=== PATIENT | male | born 1955 | race Caucasian/White ===

== ENCOUNTER 2022-04-27 18:05 | Emergency (ER) | payer MEDICARE, OTHER ==
[~2022-04-27] VITALS: Ht 170.2 cm; Wt 136.3 kg
[2022-04-27 18:36] VITALS: BP 149/96
[2022-04-28 00:32] LABS: Basophils # (auto) 0 10 ^3/uL (0-0.2); Eosinophils # (auto) 0.2 10 ^3/uL (0-0.8); Hematocrit 39.5 % (41.0-53.0); Lymphocytes # (auto) 1.2 10 ^3/uL (0.4-5.4); Monocytes # (auto) 0.7 10 ^3/uL (0-1.3); Neutrophils # (auto) 2.8 10 ^3/uL (1.6-8.6); White Blood Cell 4.9 10^3/uL (4.4-10.8)
[2022-04-28 00:33] LABS: Basophils % (auto) 0.4 % (0.0-2.0); Eosinophils % (auto) 3.4 % (0.0-7.0); Hemoglobin 13.5 g/dL (13.5-17.5); Lymphocytes % (auto) 24.2 % (10.0-50.0); Mean Corpuscular Hemoglobin 35.8 pg (28.0-32.0); Mean Corpuscular Hgb Conc. 34.3 g/dL (32.0-36.0); Mean Corpuscular Volume 104.6 fL (80.0-100.0); Nucleated Red Blood Cells % 0.1 %; Red Blood Cells 3.78 10^6/uL (4.5-5.90); Red Cell Distribution Width 14.7 % (11.8-14.3)
[2022-04-28 00:50] LABS: Albumin 2.2 g/dL (3.4-5.0); BUN/Creatinine Ratio 17.6; Calcium 8.1 mg/dL (8.5-10.1); Magnesium 2.4 mg/dL (1.6-2.6); Potassium 4.5 mmol/L (3.5-5.1)
[2022-04-28 00:53] LABS: Bilirubin, Total 3.4 mg/dL (0.2-1.0); Total Protein 7.4 g/dL (6.4-8.2)
== END 2022-04-28 05:21 | disposition home or self-care (01) ==
LOC: ER 18:05
DX: K72.90 Hepatic failure, unspecified without coma (principal); R60.1 Generalized edema; E88.09 Other disorders of plasma-protein metabolism, not elsewhere classified
CPT/HCPCS: 36415; 80053; 83735; 83880; 84484; 85025

== ENCOUNTER 2022-04-29 21:06 | Inpatient (IN) | payer MEDICARE ==
[~2022-04-29] VITALS: Ht 170.2 cm; Wt 122.1 kg
[2022-04-29] MEDS ORDERED: FUROSEMIDE 100 MG/10ML VIAL IV ONE (22:15)
[2022-04-29 23:04] LABS: Basophils # (auto) 0 10 ^3/uL (0-0.2); Eosinophils # (auto) 0.1 10 ^3/uL (0-0.8); Hemoglobin 13.7 g/dL (13.5-17.5); Monocytes # (auto) 0.9 10 ^3/uL (0-1.3); Nucleated Red Blood Cells % 0.1 %; White Blood Cell 5.3 10^3/uL (4.4-10.8)
[2022-04-29 23:05] LABS: Basophils % (auto) 0.4 % (0.0-2.0); Eosinophils % (auto) 2.8 % (0.0-7.0); Hematocrit 40.4 % (41.0-53.0); Lymphocytes % (auto) 19.1 % (10.0-50.0); Mean Corpuscular Hemoglobin 35.5 pg (28.0-32.0); Mean Corpuscular Volume 104.5 fL (80.0-100.0); Monocytes % (auto) 17.7 % (0.0-12.0); Neutrophils # (auto) 3.2 10 ^3/uL (1.6-8.6); Red Blood Cells 3.86 10^6/uL (4.5-5.90)
[2022-04-29 23:21] LABS: INR 1.34 (0.9-1.15)
[2022-04-29 23:26] LABS: Albumin 2.2 g/dL (3.4-5.0); BUN/Creatinine Ratio 12.5; Calcium 7.9 mg/dL (8.5-10.1); Potassium 4.2 mmol/L (3.5-5.1)
[2022-04-29 23:29] LABS: Total Protein 7.6 g/dL (6.4-8.2)
[2022-04-30] MEDS ORDERED: ALUM & MAG HYDROX-SIMETH LIQ(MAALOX) 30 ML PO PRN
[2022-04-30] MEDS ORDERED: LORazepam 0.5 MG TAB PO PRN
[2022-04-30] MEDS ORDERED: MORPHINE SULFATE INJ 2 MG/ml SYRG IV PRN
[2022-04-30] MEDS ORDERED: HYDROcodone-ACET 5/325MG TAB PO PRN
[2022-04-30] MEDS ORDERED: ONDANSETRON HCL 4 MG/2 ML VIAL IV PRN
[2022-04-30] MEDS ORDERED: ACETAMINOPHEN 325 MG TAB PO PRN
[2022-04-30] MEDS ORDERED: AZITHROMYCIN 500MG/ 250ML 250 ML IV ONE (00:45)
[2022-04-30] MEDS ORDERED: cefTRIAXone 1GM/50ML D5W 50 ML IV ONE (00:45)
[2022-04-30 02:13] LABS: Urine Bacteria FEW /hpf (None Seen); Urine Blood TRACE /uL (Negative); Urine Mucus FEW (None Seen); Urine Specific Gravity 1.017 (1.001-1.035); Urine WBC 3 /hpf (0 - 3)
[2022-04-30 02:14] LABS: Alcohol, Urine < 3.0 mg/dL (0-10); Amphetamine Screen, Urine POSITIVE (NEGATIVE); Barbiturate Scree,Urine NEGATIVE (NEGATIVE); Benzodiazephine Screen, Urine NEGATIVE (NEGATIVE); Cannabinoid Screen, Urine NEGATIVE (NEGATIVE); Cocaine Screen, Urine NEGATIVE (NEGATIVE)
[2022-04-30 02:21] LABS: Opiate Scree,Urine NEGATIVE (NEGATIVE); Phencyclidine Screen, Urine NEGATIVE (NEGATIVE)
[2022-04-30] MEDS ORDERED: IOHEXOL 350 MG/ML 100ML IJ ONE (02:42)
[2022-04-30 02:54] LABS: INR 1.37 (0.9-1.15); Partial Thromboplastin Time 33.3 sec (24.6-33.4)
[2022-04-30] MEDS ORDERED: ALBUMIN 25% 100 ML IV ONE (09:45)
[2022-04-30] MEDS: THIAMINE HCL 100 MG TAB PO SCH (10:00)
[2022-04-30] MEDS: FOLIC ACID 1 MG TAB PO SCH (10:00)
[2022-04-30] MEDS: MULTIPLE VITAMINS W/ MINERALS TAB PO SCH (10:00)
[2022-04-30] MEDS: cefTRIAXone 1GM/50ML D5W 50 ML IV SCH (10:38)
[2022-04-30] MEDS: SODIUM CHLOR 0.9% PF (SALINE LOCK) 10ML VIAL/SYR IV SCH ×3 (10:58→22:07)
[2022-04-30] MEDS: FUROSEMIDE 40 MG/4 ML VIAL IV SCH ×2 (10:58→18:00)
[2022-04-30 12:13] VITALS: BP 104/86
[2022-04-30 13:00] VITALS: BP 114/65
[2022-04-30] MEDS ORDERED: FURO1TAB31 PO (14:17)
[2022-04-30 17:00] VITALS: BP 113/62
[2022-04-30 22:00] VITALS: BP 109/60
[2022-05-01 05:00] VITALS: BP 98/63
[2022-05-01 06:12] LABS: Monocytes # (auto) 0.8 10 ^3/uL (0-1.3); Red Cell Distribution Width 14.8 % (11.8-14.3)
[2022-05-01] MEDS: SODIUM CHLOR 0.9% PF (SALINE LOCK) 10ML VIAL/SYR IV SCH ×3 (06:13→22:57)
[2022-05-01 06:15] LABS: Basophils # (auto) 0.1 10 ^3/uL (0-0.2); Eosinophils # (auto) 0.3 10 ^3/uL (0-0.8); Hematocrit 37.9 % (41.0-53.0); Hemoglobin 13.3 g/dL (13.5-17.5); Lymphocytes # (auto) 1.1 10 ^3/uL (0.4-5.4); Lymphocytes % (auto) 21.4 % (10.0-50.0); Mean Corpuscular Hemoglobin 36.5 pg (28.0-32.0); Mean Corpuscular Volume 104.1 fL (80.0-100.0); Monocytes % (auto) 15.1 % (0.0-12.0); Neutrophils # (auto) 2.9 10 ^3/uL (1.6-8.6); Neutrophils % (auto) 57.5 % (37.0-80.0); Nucleated Red Blood Cells % 0.3 %; Red Blood Cells 3.65 10^6/uL (4.5-5.90)
[2022-05-01 06:20] LABS: Potassium 4.2 mmol/L (3.5-5.1)
[2022-05-01 06:29] LABS: BUN/Creatinine Ratio 17.6; Bilirubin, Total 2.8 mg/dL (0.2-1.0); Calcium 7.8 mg/dL (8.5-10.1); Magnesium 2.5 mg/dL (1.6-2.6); Total Protein 6.4 g/dL (6.4-8.2)
[2022-05-01] MEDS: FUROSEMIDE 40 MG/4 ML VIAL IV SCH ×2 (06:56→18:00)
[2022-05-01 08:25] VITALS: BP 95/67
[2022-05-01] MEDS: MULTIPLE VITAMINS W/ MINERALS TAB PO SCH (09:33)
[2022-05-01] MEDS: THIAMINE HCL 100 MG TAB PO SCH (09:33)
[2022-05-01] MEDS: cefTRIAXone 1GM/50ML D5W 50 ML IV SCH (09:33)
[2022-05-01] MEDS: FOLIC ACID 1 MG TAB PO SCH (09:33)
[2022-05-01] MEDS: AZITHROMYCIN 500MG/ 250ML 250 ML IV SCH (10:49)
[2022-05-01 12:20] VITALS: BP 102/60
[2022-05-01 16:20] VITALS: BP 117/77
[2022-05-02 05:00] VITALS: BP 96/74
[2022-05-02] MEDS: FUROSEMIDE 40 MG/4 ML VIAL IV SCH ×2 (05:25→17:38)
[2022-05-02] MEDS: SODIUM CHLOR 0.9% PF (SALINE LOCK) 10ML VIAL/SYR IV SCH ×3 (05:25→22:00)
[2022-05-02 08:20] VITALS: BP 139/89
[2022-05-02] MEDS: FOLIC ACID 1 MG TAB PO SCH (08:52)
[2022-05-02] MEDS: cefTRIAXone 1GM/50ML D5W 50 ML IV SCH (08:52)
[2022-05-02] MEDS: THIAMINE HCL 100 MG TAB PO SCH (08:52)
[2022-05-02] MEDS: MULTIPLE VITAMINS W/ MINERALS TAB PO SCH (08:52)
[2022-05-02] MEDS: SPIRONOLACTONE 25 MG TAB PO SCH (08:53)
[2022-05-02] MEDS: AZITHROMYCIN 500MG/ 250ML 250 ML IV SCH (09:38)
[2022-05-02 10:40] LABS: Albumin 1.8 g/dL (3.4-5.0); Calcium 7.7 mg/dL (8.5-10.1); Potassium 4.2 mmol/L (3.5-5.1)
[2022-05-02 10:44] LABS: BUN/Creatinine Ratio 16.2; Bilirubin, Total 2.6 mg/dL (0.2-1.0); Total Protein 6.9 g/dL (6.4-8.2)
[2022-05-02 11:01] LABS: Folate (Folic Acid) 8.25 ng/mL (5.38-24)
[2022-05-02 12:15] VITALS: BP 118/70
[2022-05-02 16:10] VITALS: BP 106/68
[2022-05-02] MEDS: LACTULOSE 20Gm/30ML SOLN PO SCH ×2 (17:37→23:58)
[2022-05-02 22:00] VITALS: BP 114/69
[2022-05-03 05:00] VITALS: BP 123/79
[2022-05-03] MEDS: LACTULOSE 20Gm/30ML SOLN PO SCH ×3 (06:00→11:54)
[2022-05-03] MEDS: FUROSEMIDE 40 MG/4 ML VIAL IV SCH (06:01)
[2022-05-03] MEDS: SODIUM CHLOR 0.9% PF (SALINE LOCK) 10ML VIAL/SYR IV SCH ×2 (06:01→14:00)
[2022-05-03 07:56] LABS: Basophils # (auto) 0 10 ^3/uL (0-0.2); Basophils % (auto) 0.3 % (0.0-2.0); Eosinophils # (auto) 0.3 10 ^3/uL (0-0.8); Hemoglobin 15.7 g/dL (13.5-17.5); Lymphocytes # (auto) 1.4 10 ^3/uL (0.4-5.4); Monocytes # (auto) 0.8 10 ^3/uL (0-1.3); Red Cell Distribution Width 15.2 % (11.8-14.3)
[2022-05-03 07:58] LABS: Eosinophils % (auto) 5.2 % (0.0-7.0); Hematocrit 46.9 % (41.0-53.0); Mean Corpuscular Hemoglobin 35.4 pg (28.0-32.0); Mean Corpuscular Hgb Conc. 33.5 g/dL (32.0-36.0); Mean Corpuscular Volume 105.8 fL (80.0-100.0); Monocytes % (auto) 15.4 % (0.0-12.0); Neutrophils % (auto) 54.1 % (37.0-80.0); Nucleated Red Blood Cells % 0.1 %; Red Blood Cells 4.43 10^6/uL (4.5-5.90); White Blood Cell 5.5 10^3/uL (4.4-10.8)
[2022-05-03 09:00] VITALS: BP 127/75
[2022-05-03] MEDS: MULTIPLE VITAMINS W/ MINERALS TAB PO SCH (09:14)
[2022-05-03] MEDS: THIAMINE HCL 100 MG TAB PO SCH (09:14)
[2022-05-03] MEDS: cefTRIAXone 1GM/50ML D5W 50 ML IV SCH (09:14)
[2022-05-03] MEDS: SPIRONOLACTONE 25 MG TAB PO SCH (09:14)
[2022-05-03] MEDS: FOLIC ACID 1 MG TAB PO SCH (09:14)
[2022-05-03 09:59] LABS: Albumin 2.2 g/dL (3.4-5.0); Potassium 4.4 mmol/L (3.5-5.1)
[2022-05-03 09:59] LABS: Hepatitis B Surface Antibody Positive (Negative)
[2022-05-03 10:02] LABS: BUN/Creatinine Ratio 14.1; Bilirubin, Total 3.2 mg/dL (0.2-1.0); Total Protein 7.7 g/dL (6.4-8.2)
[2022-05-03] MEDS: AZITHROMYCIN 500MG/ 250ML 250 ML IV SCH (10:02)
[2022-05-03 10:32] LABS: Hepatitis A Total Antibody Negative (Negative)
[2022-05-03 12:42] VITALS: BP 129/76
[2022-05-03] MEDS ORDERED: SPIR25TA PO (13:24)
[2022-05-03] MEDS ORDERED: FURO1TAB33 PO (13:24)
[2022-05-03 13:30] LABS: Hepatitis C Antibody Positive (Negative)
[2022-05-03] MEDS ORDERED: AZIT250T PO (13:32)
[2022-05-03 15:59] VITALS: BP 129/76
[2022-05-03 16:14] VITALS: BP 134/72
== END 2022-05-03 17:00 | disposition home or self-care (01) | DRG 441 ==
LOC: ER 21:09 → OVERFLOW 23:57 → WEST WING 04-30 11:15
PROVIDERS: ADMIT Internal Medicine; ATTEND Internal Medicine
PROC: 0W9G3ZZ Drainage of Peritoneal Cavity, Percutaneous Approach (ICD-10-PCS; principal; 2022-04-30)
DX: K72.90 Hepatic failure, unspecified without coma (principal); E43 Unspecified severe protein-calorie malnutrition; J18.9 Pneumonia, unspecified organism; R18.8 Other ascites; Z68.41 Body mass index [BMI] 40.0-44.9, adult; K74.60 Unspecified cirrhosis of liver; B19.20 Unspecified viral hepatitis C without hepatic coma; D64.9 Anemia, unspecified; E88.09 Other disorders of plasma-protein metabolism, not elsewhere classified
CPT/HCPCS: 36415; 71045; 71260; 74177; 76705; 76942; 80053; 80307; 81001; 82105; 82140; 82248; 82607; 82746; 83036; 83735; 83880; 84154; 84156; 84425; 84439; 84443; 84484; 85025; 85610; 85730; 86703; 86704; 86706; 86708; 86803; 87081; 87205; 87340; 89051; 93005; 93306; 93925; 93970; 96365; 96366; 96367; 96375; G0378; J0696; P9047

== ENCOUNTER 2022-07-16 17:21 | Emergency (ER) | payer MEDICARE ==
[~2022-07-16] VITALS: Ht 167.6 cm; Wt 115.0 kg
[~2022-07-16 17:21] MED LIST: AZIT250T PO; FURO1TAB31 PO; FURO1TAB33 PO; SPIR25TA PO
[2022-07-16 18:07] VITALS: BP 128/86
[2022-07-16 20:35] LABS: Urine Amorphous Crystal FEW /hpf (None Seen); Urine Bacteria NONE SEEN /hpf (None Seen); Urine Blood 2+ /uL (Negative); Urine Specific Gravity 1.016 (1.001-1.035); Urine WBC 350 /hpf (0 - 3)
[2022-07-16] MEDS ORDERED: CIPR-173 PO (21:17)
== END 2022-07-16 21:34 | disposition home or self-care (01) ==
LOC: ER 17:21
DX: R33.9 Retention of urine, unspecified (principal); N39.0 Urinary tract infection, site not specified; K72.90 Hepatic failure, unspecified without coma; Z87.891 Personal history of nicotine dependence; Z79.2 Long term (current) use of antibiotics; Z79.899 Other long term (current) drug therapy
CPT/HCPCS: 51701; 81001

== ENCOUNTER 2022-10-11 22:32 | Inpatient (IN) | payer MEDICARE ==
[~2022-10-11] VITALS: Ht 167.6 cm; Wt 79.4 kg
[~2022-10-11 22:32] MED LIST changes: +CIPR-173 PO
[2022-10-11 23:43] LABS: Basophils # (auto) 0 10 ^3/uL (0-0.2); Nucleated Red Blood Cells % 0.1 %; White Blood Cell 8.7 10^3/uL (4.4-10.8)
[2022-10-11 23:45] LABS: Basophils % (auto) 0.5 % (0.0-2.0); Eosinophils # (auto) 0.2 10 ^3/uL (0-0.8); Eosinophils % (auto) 2.1 % (0.0-7.0); Hematocrit 38.4 % (41.0-53.0); Hemoglobin 13.4 g/dL (13.5-17.5); Lymphocytes % (auto) 11.7 % (10.0-50.0); Mean Corpuscular Hemoglobin 37.5 pg (28.0-32.0); Mean Corpuscular Volume 107.1 fL (80.0-100.0); Monocytes # (auto) 1.3 10 ^3/uL (0-1.3); Monocytes % (auto) 14.3 % (0.0-12.0); Neutrophils # (auto) 6.2 10 ^3/uL (1.6-8.6); Neutrophils % (auto) 71.4 % (37.0-80.0); Red Blood Cells 3.58 10^6/uL (4.5-5.90); Red Cell Distribution Width 19.6 % (11.8-14.3)
[2022-10-11 23:56] LABS: INR 1.62 (0.9-1.15); Partial Thromboplastin Time 38.8 sec (24.6-33.4)
[2022-10-12 00:05] LABS: Albumin 1.8 g/dL (3.4-5.0); BUN/Creatinine Ratio 24.7; Calcium 7.8 mg/dL (8.5-10.1); Potassium 4.1 mmol/L (3.5-5.1)
[2022-10-12 00:08] LABS: Total Protein 6.6 g/dL (6.4-8.2)
[2022-10-12] MEDS ORDERED: SODIUM CHLORIDE 0.9% 1,000 ML IV ONE (00:45)
[2022-10-12] MEDS ORDERED: LACTULOSE 20Gm/30ML SOLN PO ONE (00:45)
[2022-10-12 00:54] LABS: Lactic Acid w/Reflex 2.5 mmol/L (0.4-2.0)
[2022-10-12] MEDS ORDERED: MORPHINE SULFATE INJ 2 MG/ml SYRG IV PRN ×2 (02:30→04:00)
[2022-10-12] MEDS ORDERED: ONDANSETRON HCL 4 MG/2 ML VIAL IV PRN (02:30)
[2022-10-12] MEDS ORDERED: HYDROcodone-ACET 5/325MG TAB PO PRN (02:30)
[2022-10-12] MEDS ORDERED: DOCUSATE SOD 100 MG CAP PO PRN (02:30)
[2022-10-12] MEDS ORDERED: SODIUM CHLORIDE 0.9% 1,000 ML IV SCH (02:30)
[2022-10-12] MEDS ORDERED: cefTRIAXone 1GM/50ML D5W 50 ML IV ONE (02:30)
[2022-10-12] MEDS: ALBUMIN 25% 100 ML IV SCH ×3 (03:59→18:42)
[2022-10-12] MEDS ORDERED: NITROGLYCERIN 0.4 MG SL TAB SL PRN (04:00)
[2022-10-12 04:49] LABS: Urine Bacteria MOD /hpf (None Seen); Urine Blood 3+ /uL (Negative); Urine Budding Yeast MANY /hpf (None Seen); Urine Mucus FEW (None Seen); Urine Specific Gravity 1.024 (1.001-1.035); Urine WBC 142 /hpf (0 - 3)
[2022-10-12 04:58] LABS: Alcohol, Urine < 3.0 mg/dL (0-10); Amphetamine Screen, Urine NEGATIVE (NEGATIVE); Barbiturate Scree,Urine NEGATIVE (NEGATIVE); Benzodiazephine Screen, Urine NEGATIVE (NEGATIVE); Cannabinoid Screen, Urine NEGATIVE (NEGATIVE); Cocaine Screen, Urine NEGATIVE (NEGATIVE); Opiate Scree,Urine NEGATIVE (NEGATIVE); Phencyclidine Screen, Urine NEGATIVE (NEGATIVE)
[2022-10-12] MEDS: LACTULOSE 20Gm/30ML SOLN PO SCH ×3 (05:48→18:42)
[2022-10-12 05:50] LABS: Albumin 2.5 g/dL (3.4-5.0); Calcium 7.9 mg/dL (8.5-10.1); Potassium 3.8 mmol/L (3.5-5.1)
[2022-10-12 05:52] LABS: Basophils # (auto) 0 10 ^3/uL (0-0.2); Basophils % (auto) 0.2 % (0.0-2.0); Eosinophils # (auto) 0.1 10 ^3/uL (0-0.8); Eosinophils % (auto) 1.8 % (0.0-7.0); Hematocrit 35.9 % (41.0-53.0); Hemoglobin 12.7 g/dL (13.5-17.5); Lymphocytes # (auto) 0.9 10 ^3/uL (0.4-5.4); Lymphocytes % (auto) 12.5 % (10.0-50.0); Mean Corpuscular Hemoglobin 37.5 pg (28.0-32.0); Mean Corpuscular Hgb Conc. 35.4 g/dL (32.0-36.0); Mean Corpuscular Volume 105.8 fL (80.0-100.0); Monocytes # (auto) 1.1 10 ^3/uL (0-1.3); Monocytes % (auto) 14.5 % (0.0-12.0); Neutrophils # (auto) 5.3 10 ^3/uL (1.6-8.6); Nucleated Red Blood Cells % 0.2 %; Red Blood Cells 3.39 10^6/uL (4.5-5.90); Red Cell Distribution Width 19.5 % (11.8-14.3); White Blood Cell 7.4 10^3/uL (4.4-10.8)
[2022-10-12 05:54] LABS: Bilirubin, Total 7.3 mg/dL (0.2-1.0); Total Protein 6.8 g/dL (6.4-8.2)
[2022-10-12 09:00] VITALS: BP 106/67
[2022-10-12 09:33] VITALS: BP 106/67
[2022-10-12] MEDS: cefTRIAXone 1GM/50ML D5W 50 ML IV SCH (09:39)
[2022-10-12] MEDS ORDERED: FAMOTIDINE (10MG/ML) 2ML VL IV SCH (10:00)
[2022-10-12] MEDS ORDERED: ALBUMIN 25% 0 ML IV ONE (12:02)
[2022-10-12 13:00] VITALS: BP 104/66
[2022-10-12] MEDS ORDERED: PANTOPRAZOLE 40 MG TAB PO ONE (13:30)
[2022-10-12 17:00] VITALS: BP 104/61
[2022-10-12 22:00] VITALS: BP 93/64
[2022-10-13] MEDS: LACTULOSE 20Gm/30ML SOLN PO SCH ×5 (00:05→18:00)
[2022-10-13 05:00] VITALS: BP 92/58
[2022-10-13 05:38] LABS: Basophils # (auto) 0 10 ^3/uL (0-0.2); Basophils % (auto) 0.3 % (0.0-2.0); Eosinophils # (auto) 0.1 10 ^3/uL (0-0.8); Red Blood Cells 3.33 10^6/uL (4.5-5.90)
[2022-10-13 05:41] LABS: Eosinophils % (auto) 1.1 % (0.0-7.0); Hematocrit 35.6 % (41.0-53.0); Hemoglobin 12.7 g/dL (13.5-17.5); Lymphocytes # (auto) 1.1 10 ^3/uL (0.4-5.4); Lymphocytes % (auto) 12.8 % (10.0-50.0); Mean Corpuscular Hemoglobin 38.2 pg (28.0-32.0); Mean Corpuscular Hgb Conc. 35.7 g/dL (32.0-36.0); Mean Corpuscular Volume 106.9 fL (80.0-100.0); Monocytes # (auto) 0.9 10 ^3/uL (0-1.3); Monocytes % (auto) 10.9 % (0.0-12.0); Neutrophils # (auto) 6.3 10 ^3/uL (1.6-8.6); Neutrophils % (auto) 74.9 % (37.0-80.0); Nucleated Red Blood Cells % 0.2 %; Red Cell Distribution Width 19.2 % (11.8-14.3); White Blood Cell 8.4 10^3/uL (4.4-10.8)
[2022-10-13 05:55] LABS: Potassium 4.3 mmol/L (3.5-5.1)
[2022-10-13 06:01] LABS: Albumin 2.4 g/dL (3.4-5.0); BUN/Creatinine Ratio 21.1; Bilirubin, Total 7.6 mg/dL (0.2-1.0); Calcium 7.7 mg/dL (8.5-10.1); Total Protein 5.9 g/dL (6.4-8.2)
[2022-10-13 09:00] VITALS: BP_SYST 100; BP_SYST 144; BP_DIAS 62; BP_DIAS 74
[2022-10-13] MEDS: PANTOPRAZOLE 40 MG TAB PO SCH (09:06)
[2022-10-13] MEDS: cefTRIAXone 1GM/50ML D5W 50 ML IV SCH (09:06)
[2022-10-13 13:00] VITALS: BP 85/48
[2022-10-13 20:06] LABS: Lactic Acid w/Reflex 2.7 mmol/L (0.4-2.0)
[2022-10-13 21:49] VITALS: BP 98/68
[2022-10-13] MEDS ORDERED: phytonadione 10 MG in SODIUM CHL 0.9% 50 ML IV ONE (23:00)
[2022-10-14 05:00] VITALS: BP 100/57
[2022-10-14 05:26] LABS: Basophils # (auto) 0 10 ^3/uL (0-0.2); Basophils % (auto) 0.4 % (0.0-2.0); Eosinophils # (auto) 0.2 10 ^3/uL (0-0.8); Eosinophils % (auto) 2.7 % (0.0-7.0); Hematocrit 34.3 % (41.0-53.0); Hemoglobin 12.2 g/dL (13.5-17.5); Lymphocytes % (auto) 16.1 % (10.0-50.0); Mean Corpuscular Hemoglobin 37.9 pg (28.0-32.0); Mean Corpuscular Hgb Conc. 35.5 g/dL (32.0-36.0); Mean Corpuscular Volume 106.6 fL (80.0-100.0); Monocytes # (auto) 0.9 10 ^3/uL (0-1.3); Neutrophils # (auto) 4.1 10 ^3/uL (1.6-8.6); Neutrophils % (auto) 66.8 % (37.0-80.0); Nucleated Red Blood Cells % 0.1 %; Red Blood Cells 3.21 10^6/uL (4.5-5.90); Red Cell Distribution Width 19.5 % (11.8-14.3); White Blood Cell 6.1 10^3/uL (4.4-10.8)
[2022-10-14 06:07] LABS: Albumin 2.3 g/dL (3.4-5.0); Calcium 7.4 mg/dL (8.5-10.1)
[2022-10-14 06:12] LABS: BUN/Creatinine Ratio 18.8; Bilirubin, Total 5.7 mg/dL (0.2-1.0); Total Protein 5.8 g/dL (6.4-8.2)
[2022-10-14 09:00] VITALS: BP 110/71
[2022-10-14] MEDS ORDERED: LACTULOSE 20Gm/30ML SOLN PO SCH (10:00)
[2022-10-14] MEDS: cefTRIAXone 1GM/50ML D5W 50 ML IV SCH (10:28)
[2022-10-14] MEDS: PANTOPRAZOLE 40 MG TAB PO SCH (10:28)
[2022-10-14] MEDS ORDERED: ACETAMINOPHEN 500 MG TAB PO ONE (10:30)
[2022-10-14] MEDS ORDERED: traMADol HCL 50 MG TAB PO ONE (12:45)
[2022-10-14 13:00] VITALS: BP 102/69
[2022-10-14 17:00] VITALS: BP 106/79
[2022-10-14] MEDS ORDERED: HYDROmorphone HCL 2 MG/ML VL/or syr IV ONE (17:00)
[2022-10-14] MEDS: LACTULOSE 20Gm/30ML SOLN PO SCH ×2 (17:49→23:38)
[2022-10-14 22:00] VITALS: BP 94/58
[2022-10-15 05:00] VITALS: BP 93/62
[2022-10-15] MEDS: LACTULOSE 20Gm/30ML SOLN PO SCH ×4 (05:55→23:09)
[2022-10-15 07:30] VITALS: BP 111/69
[2022-10-15 09:00] VITALS: BP 89/53
[2022-10-15] MEDS: cefTRIAXone 1GM/50ML D5W 50 ML IV SCH (09:58)
[2022-10-15] MEDS: SPIRONOLACTONE 25 MG TAB PO SCH (09:59)
[2022-10-15] MEDS: PANTOPRAZOLE 40 MG TAB PO SCH (10:00)
[2022-10-15 13:00] VITALS: BP 111/69
[2022-10-15] MEDS ORDERED: ALBUMIN 25% 100 ML IV ONE ×3 (14:39→15:00)
[2022-10-15 17:00] VITALS: BP 106/68
[2022-10-15] MEDS: MORPHINE SULFATE INJ 2 MG/ml SYRG IV PRN (19:01)
[2022-10-15 22:37] VITALS: BP 95/67
[2022-10-15] MEDS: rifAXIMin 550 MG TAB PO SCH (23:09)
[2022-10-16 05:35] VITALS: BP 97/68
[2022-10-16] MEDS: LACTULOSE 20Gm/30ML SOLN PO SCH ×4 (06:36→23:31)
[2022-10-16 06:40] LABS: Basophils # (auto) 0.1 10 ^3/uL (0-0.2); Eosinophils # (auto) 0.1 10 ^3/uL (0-0.8); Hematocrit 38.9 % (41.0-53.0); Hemoglobin 13.3 g/dL (13.5-17.5); Lymphocytes # (auto) 0.9 10 ^3/uL (0.4-5.4); Monocytes # (auto) 0.9 10 ^3/uL (0-1.3); Neutrophils # (auto) 5.6 10 ^3/uL (1.6-8.6); White Blood Cell 7.5 10^3/uL (4.4-10.8)
[2022-10-16 06:43] LABS: Basophils % (auto) 1.3 % (0.0-2.0); Eosinophils % (auto) 1.3 % (0.0-7.0); Lymphocytes % (auto) 11.9 % (10.0-50.0); Mean Corpuscular Hemoglobin 37.8 pg (28.0-32.0); Mean Corpuscular Hgb Conc. 34.2 g/dL (32.0-36.0); Mean Corpuscular Volume 110.5 fL (80.0-100.0); Monocytes % (auto) 11.9 % (0.0-12.0); Neutrophils % (auto) 73.6 % (37.0-80.0); Nucleated Red Blood Cells % 0.1 %; Red Blood Cells 3.53 10^6/uL (4.5-5.90); Red Cell Distribution Width 19.6 % (11.8-14.3)
[2022-10-16 06:58] LABS: Albumin 2.7 g/dL (3.4-5.0); BUN/Creatinine Ratio 16.1; Bilirubin, Total 6.7 mg/dL (0.2-1.0); Calcium 7.8 mg/dL (8.5-10.1)
[2022-10-16 07:00] LABS: Total Protein 6.1 g/dL (6.4-8.2)
[2022-10-16] MEDS: PANTOPRAZOLE 40 MG TAB PO SCH (08:50)
[2022-10-16] MEDS: rifAXIMin 550 MG TAB PO SCH ×2 (08:50→23:31)
[2022-10-16] MEDS: cefTRIAXone 1GM/50ML D5W 50 ML IV SCH (08:51)
[2022-10-16] MEDS: SPIRONOLACTONE 25 MG TAB PO SCH (08:51)
[2022-10-16 09:00] VITALS: BP 91/55
[2022-10-16 13:00] VITALS: BP 109/73
[2022-10-16] MEDS: MORPHINE SULFATE INJ 2 MG/ml SYRG IV PRN ×2 (13:04→20:35)
[2022-10-16] MEDS: DAPTOmycin 500 MG in SODIUM CHL 0.9% 50 ML IV SCH (14:51)
[2022-10-16 17:00] VITALS: BP 84/55
[2022-10-16 18:24] VITALS: BP 95/60
[2022-10-16 22:00] VITALS: BP 101/67
[2022-10-16] MEDS ORDERED: LINEZOLID 600MG/300ML 300 ML IV SCH (22:00)
[2022-10-17] MEDS: MORPHINE SULFATE INJ 2 MG/ml SYRG IV PRN ×3 (04:13→20:00)
[2022-10-17 05:00] VITALS: BP 111/74
[2022-10-17] MEDS: LACTULOSE 20Gm/30ML SOLN PO SCH ×3 (06:03→22:43)
[2022-10-17 07:55] VITALS: BP 118/79
[2022-10-17 07:56] LABS: Basophils # (auto) 0.1 10 ^3/uL (0-0.2); Eosinophils # (auto) 0.1 10 ^3/uL (0-0.8); Monocytes # (auto) 1.1 10 ^3/uL (0-1.3)
[2022-10-17 08:06] LABS: Potassium 4.4 mmol/L (3.5-5.1)
[2022-10-17 08:11] LABS: Basophils % (auto) 1.1 % (0.0-2.0); Eosinophils % (auto) 1.2 % (0.0-7.0); Hematocrit 39.8 % (41.0-53.0); Hemoglobin 13.9 g/dL (13.5-17.5); Lymphocytes # (auto) 1.3 10 ^3/uL (0.4-5.4); Lymphocytes % (auto) 14.8 % (10.0-50.0); Mean Corpuscular Hemoglobin 37.4 pg (28.0-32.0); Mean Corpuscular Hgb Conc. 34.8 g/dL (32.0-36.0); Mean Corpuscular Volume 107.4 fL (80.0-100.0); Monocytes % (auto) 12.5 % (0.0-12.0); Neutrophils % (auto) 70.4 % (37.0-80.0); Nucleated Red Blood Cells % 0.1 %; Red Blood Cells 3.71 10^6/uL (4.5-5.90); Red Cell Distribution Width 19.4 % (11.8-14.3); White Blood Cell 8.6 10^3/uL (4.4-10.8)
[2022-10-17 08:14] LABS: BUN/Creatinine Ratio 15.4
[2022-10-17] MEDS: PANTOPRAZOLE 40 MG TAB PO SCH (09:56)
[2022-10-17] MEDS: rifAXIMin 550 MG TAB PO SCH ×2 (09:56→22:43)
[2022-10-17] MEDS: SPIRONOLACTONE 25 MG TAB PO SCH (09:56)
[2022-10-17 12:40] VITALS: BP 108/77
[2022-10-17] MEDS ORDERED: FUROSEMIDE 40 MG/4 ML VIAL IV ONE (13:15)
[2022-10-17] MEDS: DAPTOmycin 500 MG in SODIUM CHL 0.9% 50 ML IV SCH (14:17)
[2022-10-17 16:35] VITALS: BP 124/71
[2022-10-17 22:00] VITALS: BP 92/61
[2022-10-17] MEDS: MELATONIN 5 MG TAB PO SCH (22:43)
[2022-10-18 06:27] LABS: Basophils # (auto) 0 10 ^3/uL (0-0.2); Eosinophils # (auto) 0.2 10 ^3/uL (0-0.8); Hemoglobin 13.6 g/dL (13.5-17.5); Neutrophils # (auto) 4.8 10 ^3/uL (1.6-8.6); White Blood Cell 7.5 10^3/uL (4.4-10.8)
[2022-10-18 06:30] LABS: Basophils % (auto) 0.2 % (0.0-2.0); Eosinophils % (auto) 2.1 % (0.0-7.0); Lymphocytes # (auto) 1.4 10 ^3/uL (0.4-5.4); Lymphocytes % (auto) 18.8 % (10.0-50.0); Mean Corpuscular Hgb Conc. 35.7 g/dL (32.0-36.0); Mean Corpuscular Volume 106.2 fL (80.0-100.0); Monocytes # (auto) 1.1 10 ^3/uL (0-1.3); Monocytes % (auto) 14.8 % (0.0-12.0); Neutrophils % (auto) 64.1 % (37.0-80.0); Nucleated Red Blood Cells % 0.1 %; Red Blood Cells 3.57 10^6/uL (4.5-5.90); Red Cell Distribution Width 19.1 % (11.8-14.3)
[2022-10-18 06:42] LABS: Potassium 4.6 mmol/L (3.5-5.1)
[2022-10-18] MEDS: LACTULOSE 20Gm/30ML SOLN PO SCH ×3 (06:44→22:30)
[2022-10-18 06:48] LABS: Albumin 2.4 g/dL (3.4-5.0); BUN/Creatinine Ratio 16.1; Calcium 7.8 mg/dL (8.5-10.1)
[2022-10-18 06:51] LABS: Bilirubin, Total 6.8 mg/dL (0.2-1.0); Total Protein 6.4 g/dL (6.4-8.2)
[2022-10-18 08:45] VITALS: BP 107/70
[2022-10-18] MEDS: PANTOPRAZOLE 40 MG TAB PO SCH (10:15)
[2022-10-18] MEDS: rifAXIMin 550 MG TAB PO SCH ×2 (10:15→22:31)
[2022-10-18] MEDS: MORPHINE SULFATE INJ 2 MG/ml SYRG IV PRN (10:15)
[2022-10-18] MEDS: FUROSEMIDE 20 MG/2 ML VIAL IV SCH (10:30)
[2022-10-18] MEDS: SPIRONOLACTONE 25 MG TAB PO SCH (10:45)
[2022-10-18 12:40] VITALS: BP 103/63
[2022-10-18] MEDS: DAPTOmycin 500 MG in SODIUM CHL 0.9% 50 ML IV SCH (14:45)
[2022-10-18 16:35] VITALS: BP 101/69
[2022-10-18] MEDS ORDERED: MORPHINE SULFATE INJ 2 MG/ml SYRG IV PRN (17:45)
[2022-10-18] MEDS ORDERED: MORPHINE SULFATE INJ 2 MG/ml SYRG IV ONE (17:45)
[2022-10-18 22:00] VITALS: BP 104/74
[2022-10-18] MEDS: MELATONIN 5 MG TAB PO SCH (22:31)
[2022-10-19 05:00] VITALS: BP 102/66
[2022-10-19] MEDS: LACTULOSE 20Gm/30ML SOLN PO SCH (06:26)
[2022-10-19 08:49] VITALS: BP 99/76
[2022-10-19] MEDS: FUROSEMIDE 20 MG/2 ML VIAL IV SCH (10:00)
[2022-10-19] MEDS: rifAXIMin 550 MG TAB PO SCH (10:01)
[2022-10-19] MEDS: SPIRONOLACTONE 25 MG TAB PO SCH (10:01)
[2022-10-19] MEDS: PANTOPRAZOLE 40 MG TAB PO SCH (10:01)
[2022-10-19 12:09] VITALS: BP 102/69
== END 2022-10-19 13:03 | DRG 872 ==
LOC: EDBD 22:32 → ER 22:32 → TELE 10-12 03:58 → TELE-WESTW 10-12 08:16
PROVIDERS: ADMIT Nurse Practitioner Family; ATTEND Nurse Practitioner Acute Care
PROC: 0W9G3ZZ Drainage of Peritoneal Cavity, Percutaneous Approach (ICD-10-PCS; 2022-10-12)
PROC: 0W9G3ZZ Drainage of Peritoneal Cavity, Percutaneous Approach (ICD-10-PCS; principal; 2022-10-15)
PROC: 05HB33Z Insertion of Infusion Device into Right Basilic Vein, Percutaneous Approach (ICD-10-PCS; 2022-10-19)
PROC: B54MZZA Ultrasonography of Right Upper Extremity Veins, Guidance (ICD-10-PCS; 2022-10-19)
DX: A41.81 Sepsis due to Enterococcus (principal); E87.1 Hypo-osmolality and hyponatremia; K76.6 Portal hypertension; Z16.21 Resistance to vancomycin; D69.6 Thrombocytopenia, unspecified; E88.09 Other disorders of plasma-protein metabolism, not elsewhere classified; K70.40 Alcoholic hepatic failure without coma; K70.31 Alcoholic cirrhosis of liver with ascites; K76.82 Hepatic encephalopathy; N21.0 Calculus in bladder; R62.7 Adult failure to thrive; R65.20 Severe sepsis without septic shock; Z83.3 Family history of diabetes mellitus; R33.9 Retention of urine, unspecified; Z20.822 Contact with and (suspected) exposure to COVID-19; Z88.1 Allergy status to other antibiotic agents
CPT/HCPCS: 36415; 71045; 76705; 76942; 80048; 80053; 80307; 81001; 82140; 83605; 83690; 84484; 85025; 85610; 85730; 87040; 87077; 87086; 87088; 87186; 87205; 87426; 89051; 93005; 93306; 96361; 96365; 96375; 97110; 97116; 97163; 97530; G0378; J0696; J3430; J3490; P9047